=== PATIENT | female | born 1985 | race Caucasian/White ===

== ENCOUNTER 2022-09-21 11:18 | Emergency (ER) | payer BC ==
[~2022-09-21] VITALS: Ht 160 cm; Wt 59.0 kg
[2022-09-21 11:33] VITALS: BP_SYST 126; PULSE 83; RESP 16; TEMP 98.3; O2SAT 99
[2022-09-21 12:17] LABS: ALBUMIN 4.1 g/dL (3.4-4.8); CALCIUM 8.9 mg/dL (8.4-11.0); CREATININE 0.54 mg/dL (0.55-1.30); TOTAL BILIRUBIN 0.2 mg/dL (0.0-1.0)
[2022-09-21 12:25] LABS: FREE T4 (FREE THYROXINE) 0.9 ng/dl (0.8-1.5); THYROID STIMULATING HORMONE 1.61 uIu/mL (0.36-3.74)
[2022-09-21] MEDS ORDERED: MULT-1117 PO (13:31)
[2022-09-21] MEDS ORDERED: FERR-69 PO (13:33)
[2022-09-21] MEDS ORDERED: TRAM50TA2 PO (13:37)
[2022-09-21 13:54] VITALS: BP_SYST 128; PULSE 8; RESP 16; TEMP 98.1; O2SAT 100
[2022-09-22 08:07] LABS: TRIIODOTHYRONINE (T3) 76 ng/dL (71-180)
[2022-09-22 10:43] LABS: FOLATE (FOLIC ACID) >20.0 ng/mL (>3.0)
== END 2022-09-21 13:59 | disposition home or self-care (01) ==
LOC: SED 11:18
DX: G43.909 Migraine, unspecified, not intractable, without status migrainosus (principal); Z79.899 Other long term (current) drug therapy
CPT/HCPCS: 36415; 70450-TC; 76376; 80053; 82607; 82746; 84439; 84443; 84480; 99284

== ENCOUNTER 2023-04-21 20:14 | Emergency (ER) | payer BC ==
[~2023-04-21] VITALS: Ht 160 cm; Wt 61.2 kg
[~2023-04-21 20:14] MED LIST: TRAM50TA2 PO
[2023-04-21 21:00] LABS: HEMATOCRIT 40.5 % (36-48); HEMOGLOBIN 13.6 g/dL (12.0-16.0); MEAN CORPUSCULAR HEMOGLOBIN 31 pg (27-31); MEAN CORPUSCULAR HGB CONC 34 % (32-36); MEAN CORPUSCULAR VOLUME 93 fL (79.0-98.0); PLATELET COUNT (AUTO) 306 K/uL (130-430); RED BLOOD CELL COUNT(AUTO) 4.35 MIL/uL (4.2-6.2); RED CELL DISTRIBUTION WIDTH 13.9 % (9.0-15.0); WHITE BLOOD COUNT (AUTO) 7.6 K/uL (4.8-10.8)
[2023-04-21 21:07] VITALS: BP_SYST 109; PULSE 96; RESP 16; TEMP 98.6; O2SAT 99
[2023-04-21 21:17] LABS: ATYPICAL LYMPHOCYTES % 2 % (0-0); BAND % (MANUAL) 9 % (0-6); BASOPHILS % (MANUAL) 0 % (0-2); EOSINOPHILS % (MANUAL) 0 % (0-7); LYMPHOCYTES % (MANUAL) 4 % (20-46); MONOCYTES % (MANUAL) 5 % (0-11)
[2023-04-21 21:18] LABS: PLATELET ESTIMATE ADEQUATE (ADEQUATE)
[2023-04-21 21:21] LABS: CALCIUM 9.1 mg/dL (8.4-11.0); CREATININE 0.69 mg/dL (0.55-1.30); POTASSIUM 3.6 mmol/L (3.5-5.1)
[2023-04-21 21:25] LABS: ALBUMIN 3.8 g/dL (3.4-4.8); BILIRUBIN,DIRECT 0.1 mg/dL (0.0-0.3); TOTAL BILIRUBIN 0.3 mg/dL (0.0-1.0); TOTAL PROTEIN, SERUM 7.4 g/dL (6.4-8.3)
[2023-04-21 21:36] LABS: BILIRUBIN,URINE NEGATIVE (NEGATIVE); BLOOD, URINE 2+ (NEGATIVE); CLARITY/URINE SL CLOUDY (CLEAR); COLOR,URINE YELLOW (YELLOW); GLUCOSE,URINE NEGATIVE (NEGATIVE); KETONES,URINE TRACE (NEGATIVE); LEUKOCYTE ESTERASE ,URINE NEGATIVE (NEGATIVE); NITRITE, URINE NEGATIVE (NEGATIVE); PH,URINE 6.5 (5.0-8.0); PROTEIN URINE TRACE (NEGATIVE); UROBILINOGEN,URINE 0.2 (0.2-1.0)
[2023-04-21 21:45] LABS: BACTERIA,URINE FEW /HPF (None Seen); MUCUS,URINE 2+ /LPF (None Seen)
[2023-04-21] MEDS: DICYCLOMINE HCL 10 MG/5 ML SOLUTION PO ONE (22:35)
[2023-04-21] MEDS: ONDANSETRON HCL 4 MG/2 ML VIAL IVP ONE (22:35)
[2023-04-22] MEDS ORDERED: DICY10SO PO (00:33)
[2023-04-22] MEDS ORDERED: ONDA-8 TL (00:33)
[2023-04-22] MEDS: ONDANSETRON HCL 4 MG/2 ML VIAL IVP ONE (00:56)
[2023-04-22 01:03] VITALS: BP_SYST 92; PULSE 93; RESP 20; TEMP 98.6; O2SAT 97
== END 2023-04-22 01:03 | disposition home or self-care (01) ==
LOC: SED 20:14
DX: K52.9 Noninfective gastroenteritis and colitis, unspecified (principal); R11.2 Nausea with vomiting, unspecified; R10.9 Unspecified abdominal pain; Z79.899 Other long term (current) drug therapy
CPT/HCPCS: 99284; 96374; 85027; 80076; 80048; 81001; 83690; 85007; 36415; 81000; 96376; 81015; J2405 ×2